=== PATIENT | male | born 1960 | race Caucasian/White ===

== ENCOUNTER 2020-04-17 08:36 | Outpatient (CLI) | payer OTHER, SELFPAY ==
--- NOTE | 2020-04-17 09:32 | NMCV_ITS ---
NM giovanni perf SPECT r/s* [id number] Cruzito Osman Age: 60 Gender: M : 1960 Exam Date: 04/17/2020 09:42 Ordering Phys: Kevin Waddell (ER USE) DO Technologist: ABIMAEL Angulo Exam Location: [facility] Indications: Chest pain STRESS TEST Please [facility] for [facility] findings IMAGE PROTOCOL Rest/Stress 1 Exercise Day Radiopharmaceutical Dose (mCi) Administration Site Administered by Rest: Tc-99m 10.8 IV ABIMAEL Angulo Sestamibi Stress:Tc-99m 32.9 IV ABIMAEL Angulo Sestamibi Rest: 04/17/2020 60 Discovery 630 Stress: 04/17/2020 45 Discovery 630 SPECT RESULTS Technical Quality: Good Raw Data Analysis: Normal Image Corrections: Patient motion artifact - motion correction applied to stress supine and rest due to breathing artifact. Summed Stress Score: 0 Summed Rest Score: 0 Summed Difference Score: 0 PERFUSION FINDINGS Patchy areas of slightly decreased tracer uptake in the anterior wall and inferior wall regions, with no significant reversibility FUNCTIONAL RESULTS (calculated via Gated SPECT) Stress Image LV EF (%): 58 Stress EDV (mL):108 TID: 0.84 Stress ESV (mL):45 FUNCTIONAL FINDINGS: Segmental wall motion analysis revealing no gross wall motion normalities IMPRESSIONS 1. Myocardial perfusion imaging revealing patchy areas of slightly decreased persistent tracer uptake in the anterior wall and inferior wall regions, suggestive of myocardial scarring versus attenuation artifact. 2. Normal LV ejection fraction 58%. 3. LV wall motion analysis revealing no gross wall motion normalities. 4. Normal LV volume. No significant coronary ischemia, based on the above findings Revised copy of the test results from 04/17/2020 Dr Mickey Gandara MD [facility] (Electronically Signed) Final Date: 17 April 2020 15:53 Amended: 22 April 2020 09:04 C
--- NOTE | 2020-04-17 09:32 | ECG_ITS ---
[facility] Test Date: 2020-04-17 Pat Name: Cruzito Osman Department: Room: Gender: Male Manager Clinical Services: Josee Cruz : 1960 Requested By: Kevin Waddell Order Number: [id number] Jose MD: Mickey Gandara M.D. Interpretive Statements NAME OF STUDY: EXERCISE SESTAMIBI STRESS TEST INDICATION: Chest Pain, PROCEDURE: The baseline electrocardiogram showed normal sinus rhythm with normal ST-Ts poor R wave progression.. At the baseline, the patient's blood pressure was 154/92 mm Hg with a heart rate of 34. The patient exercised for 8 minutes on a standard [place] protocol. Patient attained a maximum heart rate of 146 beats per minute(91% of the maximum predicted heart rate) with a blood pressure at the peak exercise of 191/94 mm Hg. The EKG at the peak exercise revealed no significant changes occasional PVCs and couplets are noted in the recovery phase.. Patient did not have any chest pain or any significant arrhythmis with the exercise Sestamibi was injected 1 minute prior to the peak exercise During the recovery phase, there were no new changes. Blood pressure at the end of the recovery phase was 164/84 mm Hg with a heart rate of 81 per minute. CONCLUSION: 1. No significant EKG changes with the [treadmill exercise 2. [No exercise-induced chest pain. PVCs in the form of isolated beats and couplets were noted during the recovery phase. 3. Fair exercise tolerance, attained a maximum of 10.2 METs 4. Sestamibi/Sestamibi perfusion results pending; see separate report. Electronically Signed On 04-17-2020 21:24:57 CDT by Mickey Gandara M.D. [id number]
[2020-04-17 09:33] VITALS: BMI 32.1
[2020-04-17 11:15] VITALS: BP 176/86; PULSE 99
== END 2020-04-17 08:37 | disposition home or self-care (01) ==
LOC: RAD 08:41 → CDL 09:15
PROVIDERS: PCP Electrodiagnostic Medicine; Visit Provider Electrodiagnostic Medicine
DX: R07.9 Chest pain, unspecified (principal)
CPT/HCPCS: 78452; 93017; A9500

== ENCOUNTER → 2021-06-11 13:17 | Outpatient (BNVA) | payer OTHER, SELFPAY | PROVIDERS: PCP Electrodiagnostic Medicine; Visit Provider Nurse Practitioner Family | DX: J06.9 Acute upper respiratory infection, unspecified (principal) | CPT/HCPCS: 87635 ==

== ENCOUNTER → 2021-06-13 14:50 | Outpatient (BNVA) | payer OTHER, SELFPAY | PROVIDERS: PCP Electrodiagnostic Medicine; Visit Provider Nurse Practitioner | DX: J06.9 Acute upper respiratory infection, unspecified (principal) | CPT/HCPCS: 87400 ==

== ENCOUNTER 2022-04-21 15:42 | Outpatient (CLI) | payer OTHER, SELFPAY ==
--- NOTE | 2022-04-21 16:30 | MR_ITS ---
WS: [id number] MRI LUMBAR SPINE NONCONTRAST TECHNIQUE: Sagittal T1, T2 and STIR imaging. Axial T1 and T2 imaging. CLINICAL INFORMATION: LUMBAR DISC DISPLACEMENT COMPARISON: None. FINDINGS: Mild lumbar curve. No acute compression. Mild disc bulging worse at L4-L5 and L5-S1. L1-L2: Tiny LEFT foraminal protrusion with mild LEFT foraminal narrowing. RIGHT foramen is patent. Mi ld facet arthropathy. Spinal canal is patent. L2-L3: No significant disc bulging. Spinal canal and foramen are patent. Mild facet arthropathy. L3-L4: Mild annular bulging with mild central canal stenosis. Moderate facet arthropathy with ligamen verito flavum hypertrophy. Mild LEFT and no significant RIGHT foraminal narrowing. L4-L5: Central and LEFT pericentral disc protrusion impinges the LEFT subarticular recess and rubi ing LEFT L5 nerve root. Moderate central canal stenosis. Mild bilateral foraminal narrowing. Moderate facet arthropathy. L5-S1: Mild disc bulging with impingement traversing LEFT greater than RIGHT S1 nerve roots. Moderate facet arthropathy. Mild LEFT L5-S1 foraminal narrowing. Visualized pelvic bony structures: Normal. Paravertebral soft tissues: Normal. Small bilateral renal cysts. Prior postoperative changes ACDF C6-C7. Disc osteophyte complex C5-C6 wi th mild central canal stenosis. MR/MR lumbar spine wo con* [id number] IMPRESSION: 1. Mild lumbar curve. No acute compression. No high-grade central canal stenos is. 2. Central and LEFT pericentral disc protrusion L4-L5 moderate central canal s tenosis. Impingement traversing LEFT L5 nerve root in the subarticular recess. 3. Mild central canal stenosis L3-L4. 4. Annular bulging L5-S1 with impingement traversing LEFT greater than RIGHT S 1 nerve roots. 5. Mild LEFT L3-L4, bilateral L4-L5, and LEFT L5-S1 foraminal narrowing. 6. Moderate facet arthropathy L3-L5. 7. Mild central canal stenosis in the cervical spine at C5-C6 seen on the scou t imaging.
== END 2022-04-21 15:43 | disposition home or self-care (01) ==
PROVIDERS: PCP Electrodiagnostic Medicine; Visit Provider Electrodiagnostic Medicine
DX: M51.26 Other intervertebral disc displacement, lumbar region (principal); M48.061 Spinal stenosis, lumbar region without neurogenic claudication; M47.896 Other spondylosis, lumbar region
CPT/HCPCS: 72148

== ENCOUNTER 2023-03-13 06:07 | Outpatient (CLI) | payer OTHER, SELFPAY ==
--- NOTE | 2023-03-13 06:16 | CT_ITS ---
WS: [id number] CT CERVICAL SPINE TECHNIQUE: Noncontrast CT of the cervical spine with coronal and sagittal reformatted images. CLINICAL INFORMATION: PAIN COMPARISON: None. DLP: All CT scans at [facility] use at least one of these dose optimization techniques: automated e xposure control; mA and/or kV adjustment per patient size (includes targeted exams where dose is matc hed to clinical indication); or iterative reconstruction. FINDINGS: Straightening of the normal cervical lordosis. Moderate spondylitic changes. ACDF C6-7. Interbody fus ion graft C6-7. No evidence of screw loosening. Disc osteophyte complex C4-C5 and C5-C6. C2-C3: Normal. C3-C4: Mild facet arthropathy. Spinal canal and foramen are patent. C4-C5: Disc osteophyte complex with endplate ridging. Mild central canal stenosis. Mild RIGHT greater than LEFT bony foraminal narrowing. Moderate to advanced RIGHT facet arthropathy. C5-C6: Disc osteophyte complex and endplate ridging. Moderate central canal stenosis. Moderate to sev ere bilateral bony foraminal narrowing. Uncovertebral joint hypertrophy. Facet arthropathy. C6-C7: Mild to moderate RIGHT and mild LEFT bony foraminal narrowing. Spinal canal is patent. C7-T1: No significant disc bulging. Spinal canal and foramen are patent. Visualized posterior nasopharynx: Normal. Prevertebral soft tissues: Normal. IMPRESSION: 1. Straightening of the normal cervical lordosis. ACDF C6-7 with interbody fusion graft. No evidence of hardware loosening. 2. Mild central canal stenosis C4-C5 and moderate central canal stenosis C5-C6 with disc osteophyte complexes. 3. Moderate to severe C5-C6 bony foraminal narrowing RIGHT greater than LEFT. 4. Mild to moderate RIGHT C4-5 bony foraminal narrowing and mild RIGHT C6-7 bony foraminal narrowing . 5. Moderate facet arthropathy RIGHT C4-5 and C5-C6.
--- NOTE | 2023-03-13 06:16 | CT_ITS ---
WS: [id number] CT LUMBAR SPINE, noncontrast. HISTORY: Low back pain into RIGHT leg for 6 months. TECHNIQUE: Contiguous 2.0 mm axial imaging are performed. Sagittal and coronal reformats are submitte d and reviewed. All CT scans at [facility] use at least one of these dose optimization techni ques: automated exposure control; mA and/or kV adjustment per patient size (includes targeted exams w here dose is matched to clinical indication); or iterative reconstruction. IV contrast: None DLP: 860.67 mGy COMPARISON: 02/20/2023 radiographs. Mild LEFT curvature lumbar spine. Moderate disc space narrowing and desiccation at L5-S1. No fracture s. Minimal disc base narrowing at L4-5. L1-2: Very shallow LEFT foraminal disc protrusion without nerve root contact. L2-3: Very mild annular disc bulging. Very shallow bilateral proximal foraminal disc protrusions with out contact on the nerve roots. L3-4: Mild annular disc bulging encroaching upon the ventral thecal sac, subarticular recesses and fo ramina. Mild central, bilateral subarticular and foraminal stenosis. Slightly greater foraminal steno sis on the LEFT. L4-5: Marked annular disc bulging. Broad-based central, LEFT subarticular recess and disc protrusion. Marked ligamentum flavum and facet arthritis. The broad-based disc protrusion is contacting the suba rticular recesses and the traversing L5 nerve roots bilaterally. Additional mild contact on the L4 ne rve roots. Slightly greater contact on the LEFT traversing L5 nerve root. Combination of findings con tributing to moderate to severe central, bilateral subarticular recess and foraminal stenosis. L5-S1: Mild annular disc bulging encroaching upon the subarticular recesses. Contacting the S1 nerve roots bilaterally. There is an additional moderate sized RIGHT foraminal disc protrusion and a small osteophyte contributing to moderate RIGHT foraminal stenosis. Moderate central and mild to moderate L EFT foraminal stenosis. Mild atherosclerotic disease within the aorta. IMPRESSION: 1. L5-S1: Marked annular disc bulging contacting the S1 nerve roots bilaterally. 2. L5-S1: Moderate RIGHT foraminal disc protrusion causing moderate RIGHT foraminal stenosis and cont acting the L5 nerve root. 3. L5-S1: Moderate central and mild to moderate LEFT foraminal stenosis. 4. L4-5: Broad-based central, LEFT subarticular recess and foraminal disc protrusion superimposed on annular disc bulging. Moderate encroachment extending into the subarticular recesses contacting the t raversing L5 nerve roots. Moderate to severe central, bilateral subarticular recess and foraminal keith nosis. 5. Very shallow LEFT foraminal disc protrusion at L1-2 and bilaterally at L2-3. 6. L3-4: Mild central, bilateral subarticular recess and foraminal stenosis.
== END 2023-03-13 06:08 | disposition home or self-care (01) ==
PROVIDERS: PCP Emergency Medicine Emergency Medical Services; Visit Provider Emergency Medicine Emergency Medical Services
DX: M51.37 Other intervertebral disc degeneration, lumbosacral region (principal); M51.27 Other intervertebral disc displacement, lumbosacral region; M48.07 Spinal stenosis, lumbosacral region; M48.02 Spinal stenosis, cervical region; M47.812 Spondylosis without myelopathy or radiculopathy, cervical region; Z98.1 Arthrodesis status
CPT/HCPCS: 72125; 72131

== ENCOUNTER → 2023-04-11 08:01 | Outpatient (BNVA) | payer OTHER, SELFPAY | PROVIDERS: PCP Emergency Medicine Emergency Medical Services; Referring Provider Emergency Medicine Emergency Medical Services; Visit Provider Student in an Organized Health Care Education/Training Program | DX: M75.22 Bicipital tendinitis, left shoulder | CPT/HCPCS: 20610; 73030; 99204; J3301 ==

== ENCOUNTER → 2023-06-06 13:49 | Outpatient (BNVA) | payer OTHER, SELFPAY | PROVIDERS: PCP Emergency Medicine Emergency Medical Services; Visit Provider Physician Assistant | DX: M75.22 Bicipital tendinitis, left shoulder (principal) | CPT/HCPCS: 99213 ==

== ENCOUNTER → 2024-08-29 08:54 | Outpatient (BNVA) | payer OTHER, SELFPAY | PROVIDERS: PCP Emergency Medicine Emergency Medical Services; Visit Provider Podiatrist Foot & Ankle Surgery | DX: E11.621 Type 2 diabetes mellitus with foot ulcer (principal); L97.512 Non-pressure chronic ulcer of other part of right foot with fat layer exposed; G62.9 Polyneuropathy, unspecified | CPT/HCPCS: 99203 ==

== ENCOUNTER → 2024-09-16 12:38 | Outpatient (BNVA) | payer OTHER, SELFPAY | PROVIDERS: PCP Emergency Medicine Emergency Medical Services; Visit Provider Podiatrist Foot & Ankle Surgery | DX: E11.621 Type 2 diabetes mellitus with foot ulcer (principal); L97.512 Non-pressure chronic ulcer of other part of right foot with fat layer exposed; G62.9 Polyneuropathy, unspecified | CPT/HCPCS: 99213 ==

== ENCOUNTER → 2025-03-20 12:53 | Outpatient (BNVA) | payer OTHER, SELFPAY | PROVIDERS: PCP Emergency Medicine Emergency Medical Services; Visit Provider Podiatrist Foot & Ankle Surgery | DX: E11.8 Type 2 diabetes mellitus with unspecified complications (principal); E11.621 Type 2 diabetes mellitus with foot ulcer; L97.512 Non-pressure chronic ulcer of other part of right foot with fat layer exposed; G62.9 Polyneuropathy, unspecified | CPT/HCPCS: 11042; 99214 ==

== ENCOUNTER → 2025-03-27 12:52 | Outpatient (BNVA) | payer OTHER, SELFPAY | PROVIDERS: PCP Emergency Medicine Emergency Medical Services; Visit Provider Podiatrist Foot & Ankle Surgery | DX: E11.8 Type 2 diabetes mellitus with unspecified complications (principal); E11.621 Type 2 diabetes mellitus with foot ulcer; G62.9 Polyneuropathy, unspecified; L97.512 Non-pressure chronic ulcer of other part of right foot with fat layer exposed | CPT/HCPCS: 99213 ==

== ENCOUNTER → 2025-04-24 06:58 | Outpatient (BNVA) | payer OTHER, SELFPAY | PROVIDERS: PCP Emergency Medicine Emergency Medical Services; Visit Provider Podiatrist Foot & Ankle Surgery | DX: E11.8 Type 2 diabetes mellitus with unspecified complications (principal); G62.9 Polyneuropathy, unspecified; E11.42 Type 2 diabetes mellitus with diabetic polyneuropathy; L85.1 Acquired keratosis [keratoderma] palmaris et plantaris | CPT/HCPCS: 11055; 99213 ==

== ENCOUNTER → 2025-05-29 07:24 | Outpatient (BNVA) | payer OTHER, SELFPAY | PROVIDERS: PCP Emergency Medicine Emergency Medical Services; Visit Provider Podiatrist Foot & Ankle Surgery | DX: E11.8 Type 2 diabetes mellitus with unspecified complications (principal); E11.621 Type 2 diabetes mellitus with foot ulcer; L97.512 Non-pressure chronic ulcer of other part of right foot with fat layer exposed; G62.9 Polyneuropathy, unspecified | CPT/HCPCS: 99214 ==

== ENCOUNTER → 2025-06-12 10:37 | Outpatient (BNVA) | payer OTHER, SELFPAY | PROVIDERS: Visit Provider Podiatrist Foot & Ankle Surgery | DX: E11.621 Type 2 diabetes mellitus with foot ulcer (principal); L97.512 Non-pressure chronic ulcer of other part of right foot with fat layer exposed; E11.8 Type 2 diabetes mellitus with unspecified complications; G62.9 Polyneuropathy, unspecified | CPT/HCPCS: 73610; 73630; 99214 ==